=== PATIENT | female | born 1975 | race Hispanic/Latino ===

== ENCOUNTER 2016-05-24 10:16 | Day surgery (SDC) | payer OTHER ==
[~2016-05-24 10:16] MED LIST: RINGERS SOLUTION,LACTATED 1,000 ML IV PRN
[2016-05-24 10:47] LABS: Hematocrit 45.1 % (37.0-47.0); Hemoglobin 15.5 gm/dL (12.5-16.0); Mean Cell Volume 91.9 fl (78-100); Mean Corpuscular Hemoglobin 31.6 pg (27-31); Mean Corpuscular Hgb Conc 34.4 g/dl (32-36); Mean Platelet Volume 9.3 fl (6.0-9.5); Neutrophil % 72.3 % (42-75.0); Platelet Count 343 K/mm3 (150-450); Red Blood Count 4.91 M/mm3 (4.2-5.4); Red Cell Distribution Width 11.9 % (11.5-14.0); White Blood Count 9.7 K/mm3 (4.0-10.5)
[2016-05-24] MEDS ORDERED: RINGERS SOLUTION,LACTATED 1,000 ML IV ONE (10:59)
[2016-05-24] MEDS ORDERED: IBUPROFEN 600 MG TABLET PO PRN (11:53)
--- NOTE | 2016-05-24 12:10 | OR ---
Operative Report - Dictated Report Narrative: Operative Report 05/24/2016 Hysteroscopy Dilatation and Curettage Preoperative Diagnosis: Menorrhagia Postoperative Diagnosis: Menorrhagia, Large Rectocele Procedure: Hysteroscopy Dilatation and Curettage Surgeon: Shantell Fan M.D. Anesthesia: Aleksandr Cintron [employer] DANCE INSTRUCTOR, IV sedation Findings: Uterine sound was 11 cm. The uterus was extremely anterior and there was little descent of the uterine cervix. Patient is not a good candidate for NovaSure endometrial ablation as the angle of the cervix to the vaginal opening would be difficult to transverse with the NovaSure device. Patient is not a good candidate for a vaginal hysterectomy as she has little descent and a very large rectocele Fluids: 500 ml EBL: Minimal Drains: None Complications: None Condition: Stable Pathology: Endometrial curettings Procedure: The patient was taken to the operating room with IV fluids running. She was placed in the dorsal lithotomy position after anesthesia was induced. A bivalve speculum was placed in the vagina. The anterior lip of the cervix was grasped with a single-tooth tenaculum. Uterine sound was passed into the endometrial cavity with ease. Uterine sound was 11 cm. The cervix was dilated with Nish dilators. The hysteroscope was introduced into the endometrial cavity. The cavity was distended with normal saline. [place] were visualized bilaterally. There was copious amount of tissue but no definable endometrial polyp. The hysteroscope was removed. The cavity was sharply curetted without difficulty. The hysteroscope was once again introduced into the cavity. The cavity was completely curetted. The hysteroscope was removed. The single- tooth tenaculum was removed. Sites were hemostatic. The speculum was removed from the vagina. Sponge counts were correct 2. The patient tolerated the procedure well.
[2016-05-24 13:18] VITALS: BP 109/68
== END 2016-05-24 10:17 | disposition home or self-care (01) ==
LOC: AMB 10:16
PROVIDERS: ATTEND Obstetrics & Gynecology
PROC: 0UDB8ZX Extraction of Endometrium, Via Natural or Artificial Opening Endoscopic, Diagnostic (ICD-10-PCS; principal; 2016-05-24 11:30)
DX: N92.0 Excessive and frequent menstruation with regular cycle (principal); N81.6 Rectocele; I10 Essential (primary) hypertension; E03.9 Hypothyroidism, unspecified; F41.9 Anxiety disorder, unspecified; F32.9 Major depressive disorder, single episode, unspecified; Z68.36 Body mass index [BMI] 36.0-36.9, adult

== ENCOUNTER 2016-11-10 06:58 | Day surgery (SDC) | payer OTHER ==
[~2016-11-10 06:58] MED LIST changes: +NORMAL SALINE 3 ML BOX IV PRN; +RINGER'S SOLUTION,LACTATED 1,000 ML IV PRN; -RINGERS SOLUTION,LACTATED 1,000 ML IV PRN; +ceFAZolin SODIUM 2 GM in DEXTROSE 5 % IN WATER 50 ML IV PRN
[2016-11-10] MEDS ORDERED: RINGER'S SOLUTION,LACTATED 1,000 ML IV ONE ×3 (07:35→12:00)
[2016-11-10] MEDS ORDERED: SCOPOLAMINE HYDROBROMIDE 1.5 MG PATC TD ONE (07:39)
[2016-11-10] MEDS ORDERED: BUPIVACAINE HCL/EPINEPHRINE 50 ML VIAL IJ ONE ×2 (08:45)
[2016-11-10] MEDS ORDERED: ceFAZolin SODIUM 1 GM VIAL IV ONE (11:15)
--- NOTE | 2016-11-10 14:03 | OR ---
Operative Report - Dictated Report Narrative: Operative report: 11/10/2016 Preoperative diagnosis: Menorrhagia Postoperative diagnosis: Same plus a torsed omental epiploica Procedure: Total laparoscopic hysterectomy, cystoscopy , bilateral salpingectomy , lysis of adhesions on the uterus and lysis of adhesions between the small bowel and colon, uterosacral ligament colpopexy Surgeon: Binta Garrison D.O. Certified Coding Specialist: Or staff Anesthesia: Gen. IV fluids: 2000 Milliliters Urine output: 725 Milliliters Findings: Thick adhesions of the anterior uterus to the bladder and abdominal wall approximately [address] up to 2 cm below the fundus, evidence of prior tubal ligation, elongated uterus, normal-appearing ovaries, adhesions noted between the small intestine and the colon, torsed omental epiploic with adhesions to the bowel confirmed by general surgery intraoperatively, bladder appeared intact and bilateral ureteral jets noted at the end of the procedure, liver edge appeared normal, omental adhesions to the anterior abdominal wall superior to the umbilicus and contiguous with small umbilical hernia, and umbilical hernia with the fascial defect of 1 x 1 cm, with superior and right of umbilicus approximately 3 cm EBL: 100 Milliliters Drains: None Pathology: Uterus, cervix, bilateral fallopian tubes Complications: None Condition: Stable The patient was taken to the operating room. Anesthesia was found to be adequate. The patient was prepped and draped in the normal sterile fashion in the dorsal lithotomy position. A sterile speculum was then inserted into the vagina. The cervix was difficult to visualize due to a long vagina. A figure- of-eight of 0 Vicryl was placed on the anterior lip of the cervix. The V-care manipulator was then inserted into the uterus and sutured to the cervix. The speculum was removed. A Abel catheter was then inserted into the bladder to drain throughout the procedure. Attention was then turned to the abdomen. Local anesthetic was then injected within the umbilicus. A 5 mm skin incision was then made with the scalpel. A hemostat was then used to bluntly dissect down to the fascia. The camera was then inserted into the 5 mm trocar and the abdomen was entered under direct visualization. The abdomen was then insufflated to 12 mmHg. The abdomen was then surveyed. Findings were noted as above. The uterus was elongated and enlarged and fixed and adherent to the anterior abdominal wall nearly to the fundus of the uterus. Attention was then turned to the left lower quadrant, the peritoneum was mapped with local anesthetic, skin incised, subcutaneous tissue bluntly dissected, and a 5 mm trocar entered into the peritoneum under direct visualization. These steps were then repeated on the opposite side. Electrocautery was used to release the uterus from the anterior abdominal wall with careful attention to developing a bladder flap. Thick scar tissue was noted along the vesicouterine junction. Anatomy was greatly distorted due to these adhesions as the utero-ovarian ligaments were practically at the level of the cardinal uterine vessels. The round ligaments were also distorted and nearly contiguous with the adhesion of uterus to the anterior abdominal wall. At least 30 minutes was spent dissecting down this adhesion and releasing the bladder from the uterus. The round ligament was then grasped cauterized and cut bilaterally. The utero- ovarian ligaments were also cauterized and cut with a small amount of bleeding. Hemostasis was obtained. The broad ligament was essentially nonexistent due to this distortion. The uterine vessels were easily visualized and especially torturous. These were extensively cauterized bilaterally and cut. Some bleeding was noted and cautery again was used to obtain hemostasis. Due to the anatomic distortion uterus the cervix was especially long and was difficult to perform the colpotomy. A sponge stick was placed into the vagina to help to determine where to perform the colpotomy. Colpotomy was then performed and the uterus was pulled into the vagina to maintain pneumoperitoneum. The right vaginal cuff and right uterine vessel was bleeding and electrocautery was performed cautiously in this area. The uterine vessel had retracted into the pelvic sidewall and the area was losing minimally. Surgicel was then placed in this area to help obtain hemostasis. Suction and irrigation was then performed. The vagina was then sutured in a anterior to posterior method including the uterosacral ligaments to obliterate the posterior cul-de-sac and suspend the vagina. Suction irrigation was then used. No bleeding was noted. Attention then was turned to the fallopian tubes. The fallopian tube was then grasped. Electrocautery was then used to sequentially cauterize, cut, and remove the entire fallopian tube. This was repeated on the opposite side. Both fallopian tubes were then removed through the 5 mm port. A copious amount of suction irrigation was then performed. Upon moving the bowel to visualize the ureters adhesions were noted between the small bowel and the descending colon in multiple strips that was concerning for future bowel obstruction. These strips of adhesions were released to free the small bowel from the colon. There was also adhesions noted from the colon to the omentum and this was also cauterized and released. An approximately 3 cm firm nodule was noted to be attached to the appendiceal omentum. General surgery was called to visualize this area and provide recommendations. Per general surgery this is a torsed appendiceal omental epiploic and is completely benign and recommend leaving in situ. The abdomen was again inspected. Suction and irrigated. Hemostasis was obtained. Ureter was visualized vermiculation on the right. The ureter on the left was unable to be visualized due to large descending colon. The liver edge appeared to be normal. Omental adhesions were noted to the anterior abdominal wall superior to the umbilicus. Due to the length of time under anesthesia and concern that these adhesions were over the area of hernia, this area was left undisturbed. The abdomen was then desufflated. The trochars were removed under direct visualization. The umbilicus subcutaneous tissue was reapproximated and reinforced with 0-vycril. No hernia was palpable. The skin incisions were then reapproximated with 4-0 Vicryl. Benzoin and steri strips were placed. Band- Aids were then placed. The speculum was then reinserted and the vaginal cuff inspected and was found to be intact and hemostatic with very good apical support. Vagina continued to have a very good length. The Abel catheter was then removed. A cystoscopy was then performed. The bladder appeared to be intact, without injury or trauma, bilateral ureteral jets were noted. The bladder was then drained and the cystoscope removed. The patient tolerated the procedure well. Sponge, lap, needle, and instrument counts were correct throughout the entire procedure. The patient was taken to the recovery room in stable condition. Antibiotics were re-dosed after 3 hours.
[2016-11-10] MEDS ORDERED: IBUPROFEN 800 MG TABLET PO PRN (14:35)
[2016-11-10] MEDS: oxyCODONE HCL/ACETAMINOPHEN 1 TAB TABLET PO PRN ×2 (14:53→16:54)
[2016-11-10 17:17] VITALS: BP 115/68
== END 2016-11-10 06:59 | disposition home or self-care (01) ==
LOC: AMB 06:58
PROVIDERS: ATTEND Obstetrics & Gynecology Gynecologic Oncology
PROC: 0UTC4ZZ Resection of Cervix, Percutaneous Endoscopic Approach (ICD-10-PCS; 2016-11-10)
PROC: 0UT74ZZ Resection of Bilateral Fallopian Tubes, Percutaneous Endoscopic Approach (ICD-10-PCS; 2016-11-10)
PROC: 0DNW4ZZ Release Peritoneum, Percutaneous Endoscopic Approach (ICD-10-PCS; 2016-11-10)
PROC: 0UT94ZZ Resection of Uterus, Percutaneous Endoscopic Approach (ICD-10-PCS; principal; 2016-11-10 08:00)
DX: N92.0 Excessive and frequent menstruation with regular cycle (principal); N73.6 Female pelvic peritoneal adhesions (postinfective); I10 Essential (primary) hypertension; E03.9 Hypothyroidism, unspecified; F32.9 Major depressive disorder, single episode, unspecified; F41.9 Anxiety disorder, unspecified; Z68.34 Body mass index [BMI] 34.0-34.9, adult